=== PATIENT | male | born 1975 | race Caucasian/White ===

== ENCOUNTER → 2018-12-18 | Emergency (ER) | payer BC, OTHER ==
[~2018-12-18] VITALS: Ht 182.9 cm; Wt 81.6 kg
[~2018-12-18] MED LIST: CYCL10TA7 PO; LIDOCAINE 1% (MDV) 20 ML INJ SC ONE
[2018-12-18 03:11] VITALS: BP 135/94; PULSE 73; RESP 19; Ht 182.9 cm; Wt 81.6 kg
--- NOTE | 2018-12-18 03:41 | ERD ---
ER Documentation Chief Complaint Chief Complaint C/O RT SCAPULA/SHOULDER, NECK AND ARM PAIN X2 DAYS S/P WORK OUT HPI 43-year-old male presented to ED for scapula pain x2 days. Patient states that he was swimming in the pool at the gym for about 45 minutes and working out his back and shoulders. Since then he is just felt this increase sharp pain in his back that he rates a 10 out of 10. Patient states he is tried Flexeril and lidocaine patch which has not relieved the pain. Patient denies any traumatic injury states this is never happened to him before. Patient's only past medical history is right knee surgery a few years ago. Patient is presented to ED with vitals and stable limit. ROS All systems reviewed and are negative except as per history of present illness. Medications Home Meds Active Scripts Cyclobenzaprine Hcl* (Cyclobenzaprine Hcl*) 10 Mg Tablet, 10 MG PO Q8 PRN for MUSCLE SPASMS, #10 TAB Prov:DONALD MERCEDES PA-C 12/18/18 Allergies Allergies: Coded Allergies: No Known Allergy (Unverified , 12/18/18) PMhx/Soc History of Surgery: Yes (right knee sx) Hx Alcohol Use: No Hx Substance Use: No Hx Tobacco Use: No Smoking Status: Never smoker FmHx Family History: No diabetes, No coronary disease, No other Physical Exam Vitals Vital Signs Date Temp Pulse Resp B/P (MAP) Pulse Ox O2 O2 Flow FiO2 Time Delivery Rate 12/18/18 97.5 73 19 135/94 100 03:11 (108) Physical Exam GENERAL: Moderate distress CHEST: Clear to auscultation bilaterally. There are no rales, wheezes or rhonchi. HEART: Regular rate and rhythm. No murmurs, clicks, rubs or gallops. ABDOMEN:Soft, nontender and nondistended. Good bowel sounds. No rebound or guarding. No gross peritonitis. No gross organomegaly or masses. No Rick sign or McBurney point tenderness. BACK: Palpable trigger point located medial to the scapula approximately 3 cm. EXTREMITIES: Equal pulses bilaterally. There is no peripheral clubbing, cyanosis or edema. No focal swelling or erythema. Full range of motion. Grossly neurovascularly intact. Results 24 hrs Current Medications Medications Dose Sig/Adriel Start Time Status Last (Trade) Ordered Route PRN Stop Time Admin Dose Reason Admin Lidocaine 20 ml ONCE ONCE 12/18/18 DC (Xylocaine SC 04:00 1% (Mdv) 20 12/18/18 04:01 ml) Procedures/MDM ED course: The patient was stable throughout the ED course. The patient and/or family informed of laboratory and diagnostic imaging results throughout the ED course. Procedures: Trigger point injection Location: Medial of right scapula Indication: Trigger point Technique: The area was thoroughly cleaned with normal saline and Betadine. 5 cc of 1% lidocaine was injected superficially into the trigger point. The patient tolerated the procedure well without any adverse side effects. Postprocedure the patient lung sounds were clear bilateral. The patient reports improvement in symptoms. The wound was cleaned and bandaged Medications given in ER: Lidocaine 1% Patient tolerated medication well with no adverse reactions. Patient reported improvement in pain. Medical decision making: Is a 43-year-old male presented to ED for back pain. Patient states that he was in the gym working out he was swimming for 45 minutes and working out shoulders. Patient states that he has had increased sharp pain in his back that is causing shooting pain. Patient denies any past medical area back injuries denies any traumatic injury. Upon palpation I can feel the trigger point. The muscle was thoroughly cleaned with Betadine and alcohol swabs. 5 cc of 1% lidocaine was injected superficially into the muscle. Patient tolerated the procedure without difficulty. Lung sounds were reassessed and were clear bilateral. The patient denies any shortness of breath or chest pain. Upon reevaluation 20 minutes after the procedure the patient states an improvement in pain states that it feels a lot better. The patient will be discharged with cyclobenzaprine. At this time I have low suspicion for pneumothorax, spinal column injury, epidural abscess. I advised the patient that if he experiences any shortness of breath discomfort or any worsening symptoms return to ER immediately. Advised the patient otherwise he should just follow-up with his primary care provider in 1 to 2 days regarding this visit. All questions were answered at discharge and patient is agreement treatment plan. Prescription for home: Cyclobenzaprine I have discussed with the patient proper use and common side effects to expert with the medication . I advised the patient/family to speak with the pharmacist dispensing the medication to be advised of any potential drug i nteractions with other medication or supplements they may be taking. Discharge: At this time, patient is stable for discharge and outpatient management. I have instructed the patient to follow-up with his\her primary care physician in 1 to 2 days. I have discussed with the patient the possibility of needing to see a specialist for further work-up and imaging studies if symptoms persist. I have instructed the patient to promptly return to the ER for any new or worsening symptoms including increased pain, fever, nausea, vomiting, weakness or LOC. The patient and\or family expressed understanding of and agreement with this plan. All questions were answered. Home care instructions were provided. Disclaimer: Inadvertent spelling and grammatical errors are likely due to EHR\dictation software use and do not reflect on the overall quality of patient care. Also, please note that the electronic time recorded on the note does not necessarily reflect the actual time of the patient encounter. Departure Diagnosis: Primary Impression: Trigger point with back pain Condition: DONALD Tadeo PA-C Dec 18, 2018 03:41
== END | disposition home or self-care (01) ==
LOC: FTE 03:07
DX: M54.9 Dorsalgia, unspecified (principal)